=== PATIENT | male | born 1985 | race Caucasian/White ===

== ENCOUNTER 2016-07-26 17:13 | Emergency (ER) | payer OTHER ==
--- NOTE | ~2016-07-26 | EKG ---
PATIENT: JINA GO UNIT #: [id number] Ventricular Rate: 96 BPM Atrial Rate: 96 BPM P-R Interval: 124 ms QRS Duration: 82 ms Q-T Interval: 360 ms QTC Calculation(Bezet): 454 ms P [place]: 72 degrees Calculated R [place]: 88 degrees Calculated T [place]: 49 degrees Diagnosis Line: Normal sinus rhythm Diagnosis Line: Normal ECG Diagnosis Line: No previous ECGs available Diagnosis Line: Confirmed by LEVAR WILKINS MD ([id number]) on 08/05/2016 Diagnosis Line: 11:50:22 AM INTERPRETING MD: CLAUDETTE TRONCOSO
[~2016-07-26 17:13] MED LIST: KEFLEX500 M1 PO; METHADONE PO; NAPROSYN500 MG PO; NO MEDICATIONS; NORCO1 TAB 10/3 PO; ZOFRAN ODT4 MG PO; [UNRECOGNIZED DRUG - CODE] PO
== END 2016-07-26 18:00 | disposition left against medical advice (07) ==
LOC: SED 17:13
DX: F11.10 Opioid abuse, uncomplicated (principal); F32.9 Major depressive disorder, single episode, unspecified
CPT/HCPCS: 36415; 93005; 96360; 99284; J2930